=== PATIENT | male | born 1995 | race Caucasian/White ===

== ENCOUNTER 2019-12-06 01:46 | Inpatient (IN) | payer OTHER ==
[2019-12-06 02:14] LABS: #Basophils 0.1 thou/uL (0.0-0.2); #Eosinphils 0.2 thou/uL (0.0-0.7); #Lymphocytes 3.1 thou/uL (1.20-3.40); #Monocytes 0.6 thou/uL (0.11-0.59); #Neutrophils 5.8 thou/uL (1.40-6.50); %Basophils 1.3 % (0.0-1.0); %Eosinophils 1.9 % (0.0-10.0); %Lymphocytes 31.8 % (21.0-51.0); %Monocytes 6.2 % (0.0-10.0); %Neutrophils 58.8 % (42.0-75.0); Hemoglobin 15.9 g/dL (14.0-18.0); Mean Corpuscular HGB CONC 33.6 g/dL (32.0-36.0); Mean Corpuscular Hemoglobin 30.7 pg (27.0-31.0); Mean Corpuscular Volume 91.6 fL (78.0-98.0); Mean Platelet Volume 7.9 fL (7.4-10.4); Platelet Count 248 thou/uL (130-400); RBC Distribution Width 11.5 % (11.5-14.5); Red Blood Cell (RBC) Count 5.18 mill/uL (4.70-6.10); White Blood Cell (WBC) Count 9.8 thou/uL (4.8-10.8)
[2019-12-06] MEDS ORDERED: Clindamycin/D5W 900 mg/50 ml Premix Bag ONE (02:24)
[2019-12-06 02:37] LABS: ALT (SGPT) 30 U/L (8-55); AST (SGOT) 26 U/L (5-34); Albumin 4.9 g/dL (3.5-5.0); Alkaline Phosphatase 106 U/L (40-110); Anion Gap 17 mmol/L (10-20); BUN (Urea Nitrogen) 15 mg/dL (8.9-20.6); Bilirubin, Total 0.3 mg/dL (0.2-1.2); Calc. Creatinine Clearance 0 mL/min (70-130); Calcium 9.2 mg/dL (7.8-10.44); Carbon Dioxide 21 mmol/L (22-29); Chloride 105 mmol/L (98-107); Estimated GFR-MDRD Greater than 90; Globulin 3.3 g/dL (2.4-3.5); Glucose 114 mg/dL (70-105); Potassium 3.7 mmol/L (3.5-5.1); Protein, Total 8.2 g/dL (6.0-8.3); Sodium 139 mmol/L (136-145)
[2019-12-06] MEDS ORDERED: Promethazine HCl 25 MG/ML VIAL IM PRN ×3 (03:59→13:32)
[2019-12-06] MEDS ORDERED: traMADol HCl 50 MG TAB PO PRN ×2 (03:59)
[2019-12-06] MEDS ORDERED: Cyclobenzaprine 10 MG TAB PO PRN (03:59)
[2019-12-06] MEDS ORDERED: Ondansetron ODT 4 MG TAB PO PRN (03:59)
[2019-12-06] MEDS ORDERED: Dextrose 50% Abboject 50 ML SYRINGE SLOW IVP PRN (03:59)
[2019-12-06] MEDS ORDERED: Ondansetron PF 4 MG/2 ML Vial IVP PRN (03:59)
[2019-12-06] MEDS ORDERED: Dextrose 5% in Water 1,000 ML IV PRN (03:59)
[2019-12-06] MEDS ORDERED: Ketorolac Tromethamine 30 MG/ML VIAL IVP SCH (04:15)
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
[2019-12-06] MEDS: Sodium Chloride 0.9% 1,000 ML IV SCH ×2 (05:11→13:15)
[2019-12-06 05:39] VITALS: BMI 23.4
[2019-12-06] MEDS: Acetaminophen 500 MG TAB PO SCH ×2 (06:43→13:15)
[2019-12-06] MEDS: Ketorolac Tromethamine 30 MG/ML VIAL IVP SCH ×2 (06:44→13:15)
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
[2019-12-06] MEDS: Famotidine 20 MG TAB PO SCH ×2 (09:33→20:57)
[2019-12-06] MEDS ORDERED: Clindamycin/D5W 600 MG in Premix Bag 1 BAG IVPB SCH (10:00)
[2019-12-06] MEDS ORDERED: Lidocaine 1% w/Epinephrine 1:100K 20 ML VIAL ONE (10:39)
[2019-12-06] MEDS ORDERED: Chlorhexidine Gluconate 15 ML UDCUP SSP ONE (10:39)
[2019-12-06] MEDS ORDERED: Sodium Chloride 0.9% 20 ML ONE (10:50)
[2019-12-06] MEDS ORDERED: Dexamethasone 4 mg/ml Vial ONE (10:56)
[2019-12-06] MEDS ORDERED: Midazolam HCl 2 mg/2 ml Vial ONE (11:00)
[2019-12-06] MEDS ORDERED: Ondansetron PF 4 MG/2 ML Vial ONE (11:36)
[2019-12-06] MEDS ORDERED: Metoclopramide HCl 10 MG/2 ML VIAL ONE (11:52)
[2019-12-06] MEDS ORDERED: Rocuronium Bromide 10 MG/ML (10ML VIAL) ONE (11:52)
[2019-12-06] MEDS ORDERED: Fentanyl 100 MCG/2 ML VIAL ONE ×2 (11:52→13:37)
[2019-12-06] MEDS ORDERED: Lidocaine 1% PF 5 ML VIAL ONE (11:52)
[2019-12-06] MEDS ORDERED: Ketorolac Tromethamine 30 MG/ML VIAL ONE (11:52)
[2019-12-06] MEDS ORDERED: PROPOFOL 200 MG/20 ML VIAL ONE (11:52)
[2019-12-06] MEDS ORDERED: Glycopyrrolate 0.2 MG/ML 5 ML SYRINGE ONE (11:52)
[2019-12-06] MEDS ORDERED: Bupivacaine PF 0.5% 30 ML VIAL ONE (12:31)
[2019-12-06] MEDS ORDERED: EPINEPHrine 1 MG/ML AMP ONE (12:31)
[2019-12-06] MEDS ORDERED: Meperidine HCl/PF 25 MG/ML VIAL SLOW IVP PRN (13:32)
[2019-12-06] MEDS ORDERED: HYDROmorphone 2 MG/ML VIAL SLOW IVP PRN (13:32)
[2019-12-06] MEDS ORDERED: Promethazine HCl 25 MG/ML VIAL SLOW IVP PRN (13:32)
[2019-12-06] MEDS ORDERED: Ondansetron HCl/PF 4 MG/2 ML Vial IVP PRN (13:32)
[2019-12-06] MEDS ORDERED: AFRIN NASAL MIST 15 ML BOT ONE (14:55)
[2019-12-06] MEDS ORDERED: Bacitracin Zinc Ointment 30 gm TUBE ONE (15:09)
[2019-12-06] MEDS ORDERED: Promethazine HCl 25 MG/ML VIAL ONE (15:51)
[2019-12-06] MEDS ORDERED: Morphine 4 MG/ML VIAL SLOW IVP PRN (16:43)
[2019-12-06] MEDS ORDERED: Hydrocodone-Acetamin 15 ML UDCUP PO PRN (16:44)
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
[2019-12-06] MEDS: D5 0.9% NS w/ 20 mEq KCl 1,000 ML IV SCH ×2 (18:04→22:17)
[2019-12-06] MEDS ORDERED: Acetaminophen 650 MG/20.3 ML UDCUP PO SCH (18:15)
[2019-12-06] MEDS: Ibuprofen 100 MG/5 ML UDCUP PO SCH (19:02)
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
[2019-12-06] MEDS: Chlorhexidine Gluconate 15 ML UDCUP SSP SCH (20:57)
[2019-12-06] MEDS: Bacitracin 1 PK TOP SCH (20:57)
[2019-12-06] MEDS: Clindamycin/D5W 900 MG in Premix Bag 1 BAG IVPB SCH (21:06)
--- NOTE | 2019-12-06 21:22 | CT ---
EXAM: CT facial bones PROVIDED CLINICAL HISTORY: Open reduction internal fixation of bilateral mandibular fractures COMPARISON: CT of the face without contrast dated December 06, 2019 2:16 AM FINDINGS: Bones: Nasal bones: Intact. Maxilla: Intact. Mandible: There is been interval open reduction internal fixation of the right parasymphyseal and lef t mandibular angle fracture. Fracture alignment is near anatomic. Zygomatic arches: Intact. Pterygoid plates: Intact. Orbital rims: Intact. Orbital wall and floor: Intact. Frontal skull: Intact. Paranasal sinuses: Intact. Orbits: Intact. Visualized intracranial contents: Intact. Cervical spine: Intact. Soft tissues: Mild soft tissue swelling is seen near the operative sites with associated soft tissue gas consistent patient's recent postoperative state. No enlarged drainable fluid collection is evident. IMPRESSION: Interval open reduction internal fixation of the bilateral mandibular fractures.
[2019-12-06] MEDS ORDERED: Dexamethasone 10 MG/ML VIAL SLOW IVP SCH (22:00)
[2019-12-06] MEDS: Dexamethasone 4 mg/ml Vial SLOW IVP SCH (22:22)
[2019-12-07] MEDS: Ibuprofen 100 MG/5 ML UDCUP PO SCH ×3 (00:02→13:37)
[2019-12-07] MEDS: D5 0.9% NS w/ 20 mEq KCl 1,000 ML IV SCH (05:20)
[2019-12-07] MEDS: Acetaminophen 650 MG/20.3 ML UDCUP PO SCH ×3 (05:21→13:38)
[2019-12-07] MEDS: Clindamycin/D5W 900 MG in Premix Bag 1 BAG IVPB SCH (05:24)
[2019-12-07] MEDS: Dexamethasone 4 mg/ml Vial SLOW IVP SCH ×2 (05:24→13:41)
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
[2019-12-07] MEDS: Famotidine 20 MG TAB PO SCH (09:10)
[2019-12-07] MEDS: Chlorhexidine Gluconate 15 ML UDCUP SSP SCH (09:10)
[2019-12-07] MEDS: Bacitracin 1 PK TOP SCH (09:10)
[2019-12-07 12:04] VITALS: BP 125/79; TEMP 97.8
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
== END 2019-12-07 14:15 | disposition home or self-care (01) | DRG 132 ==
LOC: ERS 01:46 → SURG A 03:50 → OBSVTOIN 03:50
PROVIDERS: ADMIT Specialist; ATTEND Specialist
PROC: 0NSV04Z Reposition Left Mandible with Internal Fixation Device, Open Approach (ICD-10-PCS; principal; 2019-12-06)
PROC: 0NST04Z Reposition Right Mandible with Internal Fixation Device, Open Approach (ICD-10-PCS; 2019-12-06)
PROC: 0HQ0XZZ Repair Scalp Skin, External Approach (ICD-10-PCS; 2019-12-06)
DX: S02.652A Fracture of angle of left mandible, initial encounter for closed fracture (principal); S02.66XA Fracture of symphysis of mandible, initial encounter for closed fracture; Y04.0XXA Assault by unarmed brawl or fight, initial encounter; S00.01XA Abrasion of scalp, initial encounter
CPT/HCPCS: 70450; 70486; 72125; 76377; 80053; 80307; 85025; C1713; J0171; J1100; J1885; J2001; J2250; J2405; J2550; J2704; J2765; J3010; J3480; J3490; S0020

== ENCOUNTER 2021-03-07 12:07 | Emergency (ER) | payer OTHER ==
[2021-03-07] MEDS ORDERED: Ketorolac Tromethamine 30 MG/ML VIAL ONE (15:02)
== END 2021-03-07 15:11 | disposition home or self-care (01) ==
LOC: ERS 12:07
DX: M53.3 Sacrococcygeal disorders, not elsewhere classified (principal); F17.210 Nicotine dependence, cigarettes, uncomplicated
CPT/HCPCS: 96372; 99283; J1885